=== PATIENT | female | born 1975 | race Caucasian/White ===

== ENCOUNTER → 2016-10-22 10:04 | Outpatient (CLI) | payer SELFPAY ==
[2011-04-05 06:09] VITALS: BMI 27.4
== END | disposition home or self-care (01) ==
LOC: D.MRI 10:04
DX: M54.6 Pain in thoracic spine (principal)

== ENCOUNTER 2016-10-30 12:29 | Day surgery (SDC) | payer OTHER ==
[2016-10-30] MEDS ORDERED: EFFEXOR XR75 MG PO (13:21)
[2016-10-30] MEDS ORDERED: MOBIC7.5 MG PO (13:21)
[2016-10-30] MEDS ORDERED: CYCLOBENZAPRINE10 MG PO (13:22)
[2016-10-30] MEDS ORDERED: HYDROCODON-ACE1 EAC7 PO (13:22)
[2016-10-30 14:00] VITALS: BP 152/78; Ht 170.2 cm
== END 2016-10-30 13:35 | disposition home or self-care (01) ==
LOC: D.OPS 12:29
DX: M51.24 Other intervertebral disc displacement, thoracic region (principal); M51.34 Other intervertebral disc degeneration, thoracic region; F32.9 Major depressive disorder, single episode, unspecified; Z79.1 Long term (current) use of non-steroidal anti-inflammatories (NSAID); Z79.899 Other long term (current) drug therapy

== ENCOUNTER → 2017-01-21 11:50 | Outpatient (CLI) | payer OTHER ==
[~2017-01-21 11:50] MED LIST: CYCLOBENZAPRINE10 MG PO; EFFEXOR XR75 MG PO; HYDROCODON-ACE1 EAC7 PO; MOBIC7.5 MG PO
[2017-01-21 13:39] LABS: CHOL - HDL RATIO 4.2 ratio (2.3-4.1); LDL-HDL RATIO 2.9 ratio (1.5-3.5)
== END | disposition home or self-care (01) ==
LOC: D.LABREF 11:50
PROVIDERS: Emergency Medicine
DX: Z13.220 Encounter for screening for lipoid disorders (principal)

== ENCOUNTER 2019-07-09 08:59 | Emergency (ER) | payer OTHER ==
[~2019-07-09] VITALS: Ht 170.2 cm; Wt 86.4 kg
[2019-07-09 09:02] VITALS: BP 136/60; Ht 170.2 cm; Wt 86.4 kg
[2019-07-09] MEDS ORDERED: PEPCID AC20 MG PO (09:03)
[2019-07-09 09:51] LABS: BASOPHILS 0.6 % (0-2); EOSINOPHILS 1.4 % (0-7); HEMATOCRIT 40.4 % (36.0-48.0); HEMOGLOBIN 13.4 g/dL (12-16); IMMATURE GRANULOCYTES 0.2 % (0-5); LYMPHOCYTES 29.5 % (15-50); MCH 29.3 pg (26.0-34.0); MCHC 33.2 g/dL (31.0-37.0); MCV 88.4 fL (80.0-100.0); MEAN PLATELET VOLUME 9.8 fL (7.4-10.4); MONOCYTES 6.5 % (2-11); NEUTROPHILS 61.8 % (40-80); RBC 4.57 10x6/uL (4.00-5.40); RDW 12.7 % (11.5-14.5)
[2019-07-09 09:56] LABS: CALC OSMOLALITY 278 mosm/kg (275-300); CALCIUM 9.6 mg/dL (8.5-10.1); CHLORIDE - SERUM 101 mmol/L (98-107); CREATININE - SERUM 0.7 mg/dL (0.6-1.3); GLUCOSE 108 mg/dL (74-106); POTASSIUM - SERUM 3.8 mmol/L (3.5-5.1); SODIUM 139 mmol/L (136-145); UREA NITROGEN 12 mg/dL (7-18); eGFR NON AFRICAN AMERICAN > 90 mL/min (90-120)
[2019-07-09 09:57] LABS: PLATELET COUNT 372 10x3/uL (130-400)
[2019-07-09 10:02] LABS: ALBUMIN 3.9 g/dL (3.4-5.0); ALKALINE PHOSPHATASE 106 U/L (46-116); ALT (SGPT) 30 U/L (10-68); BILIRUBIN - TOTAL 0.26 mg/dL (0.2-1.3); PROTEIN - SERUM 7.9 g/dL (6.4-8.2)
== END 2019-07-09 10:04 | disposition home or self-care (01) ==
LOC: D.ER 08:59
PROVIDERS: Family Medicine
DX: W46.0XXA Contact with hypodermic needle, initial encounter (principal); Y93.89 Activity, other specified; Y92.234 Operating room of hospital as the place of occurrence of the external cause; Y99.0 Civilian activity done for income or pay